=== PATIENT | male | born 1945 ===

== ENCOUNTER 2017-12-09 09:21 | Day surgery (SDC) | payer MEDICARE, OTHER ==
[2017-11-18 10:19] VITALS: BMI 21.3
[2017-12-09 10:07] LABS: PROTHROMBIN TIME 11.5 SECONDS (9.7-12.2)
[2017-12-09] MEDS ORDERED: Etomidate 20 mg/10ml Inj IV ONE (11:03)
--- NOTE | 2017-12-09 11:31 | CP.SDSHP ---
Same Day Surgery H & P - History Proposed Procedure: CT guided lung mass biopsy Pre-Op Diagnosis: lung mass biopsy - Allergies Allergies: Allergies No Known Allergies Allergy (Verified 01/21/14 19:47) - Physical Exam Vital Signs: Vital Signs 12/09/17 10:10 Temperature 97.6 F Pulse Rate 66 Respiratory 18 Rate Blood Pressure 143/76 O2 Sat by Pulse 98 Oximetry Mental Status: Alert & Oriented x3 Neuro: WNL Heart: WNL Lungs: WNL - Impression Impression: Pt with a peripheral 3 cm right lung mass. Plan CT guided lung mass biopsy. Informed consent obtained and risk of pneumothorax explained to pt requiring chest tube. Pt. Evaluated Today:Candidate for Anesthesia & Procedure: Yes (ASA 3 Malampati 3) - Date & Time Date: 12/09/17 Time: 11:05 Short Stay Discharge - Short Stay Discharge Admitting Diagnosis/Reason for Visit: LUNG MASS Disposition: HOME/ ROUTINE
--- NOTE | 2017-12-09 11:32 | PCM.SURG1 ---
Surgeon's Initial Post Op Note - Surgeon's Notes Surgeon: Elvis Culp MD Champagne Maker: NONE Type of Anesthesia: IV Sedation Pre-Operative Diagnosis: lung mass Operative Findings: 3 cm peripheral right lung mass Post-Operative Diagnosis: lung mass Operation Performed: CT guided biopsy. Two 20 gauge core specimen obtained. Specimen/Specimens Removed: 20 gauge core x 2 Estimated Blood Loss: EBL {In ML}: 0 Blood Products Given: N/A Drains Used: No Drains Post-Op Condition: Good Date of Surgery/Procedure: 12/09/17 Time of Surgery/Procedure: 11:25
[2017-12-09 12:39] VITALS: TEMP 97.8
--- NOTE | 2017-12-09 13:07 | RAD ---
PROCEDURE: CHEST RADIOGRAPH, 1 VIEW HISTORY: Status post right lung mass biopsy COMPARISON: None available. FINDINGS: LUNGS: Nodular density right midlung consistent with peripheral lung nodule seen on CT scan. PLEURA: No pneumothorax. CARDIOVASCULAR: Normal. OSSEOUS STRUCTURES: No significant abnormalities. VISUALIZED UPPER ABDOMEN: Normal. OTHER FINDINGS: None. IMPRESSION: No pneumothorax following right lung mass biopsy.
--- NOTE | 2017-12-09 13:10 | CT ---
PROCEDURE: Date of procedure: 12/09/2017 Procedure: 1. CT-guided lung mass biopsy, CPT [address] Guidance for biopsy, [address] Radiation: 357.34 MGy-cm Medications: The patient was sedated by anesthesiologist along with physiologic monitoring. 8 cc Lidocaine 1% HISTORY: Right upper lobe lung mass TECHNIQUE: Following informed consent, the Pt's chest was marked. The Pt was placed supine on the CT table and procedure time out was performed. A noncontrast CT scan was performed. Noncontrast CT scan confirmed the presence of a peripheral 2.5 cm x 1.7 cm nodule. A skin localizer was placed on the patient's right chest and a repeat CT scan was performed. The skin was marked, prepped, and draped in the usual sterile fashion. After the skin was anesthetized with lidocaine and the patient sedated by the anesthesiologist, a 20 gauge core needle was advanced percutaneously under direct CT guidance into the mass. Upon confirmation of needle position, two 20-gauge core specimens were obtained and sent for routine pathology. The needle was removed and a xeroform dressing was applied. A post biopsy CT scan showed no pneumothorax. IMPRESSION: CT guided core biopsy of peripheral 2.5 cm right lung nodule.
[2017-12-09 13:33] VITALS: BP 150/65; PULSE 71; RESP 18; O2SAT 99
== END 2017-12-09 14:10 | disposition home or self-care (01) ==
LOC: C.SPRAD 09:21
PROVIDERS: ATTEND Radiology Vascular & Interventional Radiology
DX: R91.1 Solitary pulmonary nodule (principal); J44.9 Chronic obstructive pulmonary disease, unspecified

== ENCOUNTER 2018-03-17 09:45 | Day surgery (SDC) | payer MEDICARE, OTHER ==
[2017-11-18 10:19] VITALS: BMI 21.3
[2018-03-17] MEDS ORDERED: ceFAZolin IV 1 gm in Dextrose 1 GM/50 ML BAG IVPB ONE (14:23)
[2018-03-17] MEDS ORDERED: Bupivacaine 0.5% Inj(30mL) IJ STA (14:25)
[2018-03-17] MEDS ORDERED: Propofol 10 mg/ml Inj (20 ML) ONE (14:30)
[2018-03-17] MEDS ORDERED: Bupivacaine 0.25% 20 ML INJ IJ ONE (14:41)
[2018-03-17] MEDS ORDERED: Lidocaine/Epinephrine 1% 1:100000 10 ML IJ ONE (14:42)
[2018-03-17] MEDS ORDERED: Oxycodone/Acetaminophen 5/325 mg Tab PO PRN (15:53)
--- NOTE | 2018-03-17 15:53 | PCM.SURG1 ---
Surgeon's Initial Post Op Note - Surgeon's Notes Surgeon: Dr. Hwang Veneer Puller: Kelvin PGY3, Zac PGY2, Isak GONZALES Type of Anesthesia: General LMA, Local Anesthesia Administered By: Dr. Quintanilla Pre-Operative Diagnosis: Left inguinal hernia Operative Findings: Left direct inguinal hernia Post-Operative Diagnosis: Left inguinal hernia, direct Operation Performed: Repair of Left direct inguinal hernia with mesh Specimen/Specimens Removed: N/A Estimated Blood Loss: EBL {In ML}: 10 Blood Products Given: N/A Drains Used: No Drains Post-Op Condition: Good Date of Surgery/Procedure: 03/17/18 Time of Surgery/Procedure: 15:52
[2018-03-17] MEDS: HYDROmorphone 0.5 mg/0.5 ml ISec IVP PRN ×4 (16:00→17:13)
[2018-03-17] MEDS ORDERED: Lactated Ringer's 1,000 ML IV ONE (17:30)
[2018-03-17 18:27] VITALS: O2SAT 96
[2018-03-17 18:47] VITALS: BP 177/63; PULSE 68; RESP 18; TEMP 97.7
--- NOTE | 2018-03-18 02:31 | OP ---
PROCEDURE DATE: 03/17/2018 PREOPERATIVE DIAGNOSIS: Left inguinal hernia. POSTOPERATIVE DIAGNOSIS: Left inguinal hernia. PROCEDURE CARRIED OUT: Repair of left inguinal hernia, direct. SURGEON: Yahir Hwang Jr., MD ASSISTANTS: Benjamin Warren DO and Kevan Frank DO ANESTHESIOLOGIST: INDICATIONS: A 72-year-old man with symptomatic left inguinal hernia. OPERATIVE FINDINGS: This was both direct and indirect hernia primarily. The hernia sac was identified and was retracted back into the peritoneal cavity. PHS, Prolene Hernia System, medium size deployed. It was then sutured to the surrounding fascia. The skin was closed with subcuticular closure. Marcaine was injected. Blood loss for the procedure was less than 20 mL. Operation carried out is repair of left inguinal hernia with PHS, Prolene Hernia System. Yahir Hwang Jr., MD cc: Hang Cosby MD
== END 2018-03-17 19:30 | disposition home or self-care (01) ==
LOC: C.SDS 09:45
PROVIDERS: ATTEND Surgery Vascular Surgery
DX: K40.90 Unilateral inguinal hernia, without obstruction or gangrene, not specified as recurrent (principal)
CPT/HCPCS: 49505; C1781; J0690; J1170; J2704; J3010; J7120